=== PATIENT | male | born 1965 | race African-American/Black ===

== ENCOUNTER 2018-04-18 10:16 | Emergency (ER) | payer OTHER ==
[~2018-04-18] VITALS: Ht 175.3 cm; Wt 120.7 kg
[2018-04-18] MEDS ORDERED: GUAI118L20 PO (11:32)
[2018-04-18] MEDS ORDERED: METH4TAB2 PO (11:32)
--- NOTE | 2018-04-18 11:32 | PHYS DOC ---
Past Medical History Past Medical History: Hypertension Past Surgical History: Other Additional Past Surgical Histo: RT HIP SURGERY 12/21/14, RT SHOULDER Alcohol Use: None Drug Use: None Adult General Chief Complaint Chief Complaint: Congestion HPI HPI Patient is a 52 year old male who presents with cough 1 month that comes and goes it's been using NyQuil and Coricidin. Patient states he's been coughing up white mucous every now and then. Patient doesn't smoke and has no past medical history. Patient denies fever, nasal congestion, cold chills, nausea, vomiting, chest pain, shortness of air. Review of Systems Review of Systems Constitutional: Denies fever or chills [] Eyes: Denies change in visual acuity, redness, or eye pain [] HENT: Denies nasal congestion or sore throat [] Respiratory: cough or denies shortness of breath [] Cardiovascular: No additional information not addressed in HPI [] GI: Denies abdominal pain, nausea, vomiting, bloody stools or diarrhea [] : Denies dysuria or hematuria [] Musculoskeletal: Denies back pain or joint pain [] Integument: Denies rash or skin lesions [] Neurologic: Denies headache, focal weakness or sensory changes [] All other systems were reviewed and found to be within normal limits, except as documented in this note. Allergies Allergies Allergies Coded Allergies Type Severity Reaction Last Updated Verified No Known Drug Allergies 12/30/14 No Physical Exam Physical Exam Constitutional: Well developed, well nourished, no acute distress, non-toxic appearance. [] HENT: Normocephalic, atraumatic, bilateral external ears normal, oropharynx moist, no oral exudates, nose normal. [] Eyes: PERRLA, EOMI, conjunctiva normal, no discharge. [] Neck: Normal range of motion, no tenderness, supple, no stridor. [] Cardiovascular:Heart rate regular rhythm, no murmur [] Lungs & Thorax: Bilateral breath sounds clear to auscultation [] Abdomen: Bowel sounds normal, soft, no tenderness, no masses, no pulsatile masses. [] Skin: Warm, dry, no erythema, no rash. [] Back: No tenderness, no CVA tenderness. [] Extremities: No tenderness, no cyanosis, no clubbing, ROM intact, no edema. [] Neurologic: Alert and oriented X 3, normal motor function, normal sensory function, no focal deficits noted. [] Psychologic: Affect normal, judgement normal, mood normal. Normal physical exam.[] Current Patient Data Vital Signs Vital Signs Date Time Temp Pulse Resp B/P (MAP) Pulse Ox O2 Delivery O2 Flow Rate FiO2 04/18/18 10:32 97.6 85 18 155/82 (106) 96 Room Air 97.6 EKG EKG [] Radiology/Procedures Radiology/Procedures [] Course & Med Decision Making Course & Med Decision Making Patient is a 52 year old male who presents with cough 1 month that comes and goes it's been using NyQuil and Coricidin. Patient states he's been coughing up white mucous every now and then. Patient doesn't smoke and has no past medical history. Patient denies fever, nasal congestion, cold chills, nausea, vomiting, chest pain, shortness of air. Skin pink warm and dry. Alert and oriented. Mucous membranes are moist. Lungs are clear to auscultation in all lobes. Afebrile. Vital signs are normal limits. Heart rate regular without murmur. Patient will be given a prescription for Medrol Dosepak and Cheratussin. She needs to follow-up with his primary care provider. Dragon Disclaimer Dragon Disclaimer This electronic medical record was generated, in whole or in part, using a voice recognition dictation system. Departure Departure Impression: Primary Impression: Cough Disposition: 01 HOME, SELF-CARE Condition: STABLE Referrals: NO PCP (PCP) Patient Instructions: Cough, Adult Additional Instructions: Follow-up her primary care. Take medication as prescribed. Drink plenty of fluids. Scripts Methylprednisolone (MEDROL) 4 Mg Tab.ds.pk 1 PKG PO UD, #1 PKG Prov: CARISSA REBOLLAR [facility] 04/18/18 Guaifenesin/Codeine Phosphate (CHERATUSSIN AC SYRUP) 118 Ml Liquid 5 ML PO PRN Q6HRS for 7 Days, #120 ML Prov: CARISSA REBOLLAR [facility] [employer] 04/18/18 CARISSA REBOLLAR [facility] [employer] [facility] Apr 18, 2018 11:32
[2018-04-18 11:35] VITALS: BP 153/72
[2018-04-19] MEDS ORDERED: AZIT250T6 PO (13:15)
== END 2018-04-18 11:35 | disposition home or self-care (01) ==
LOC: ER 10:16
DX: R05 Cough (principal); I10 Essential (primary) hypertension
CPT/HCPCS: 99283

== ENCOUNTER 2018-04-19 11:21 | Emergency (ER) | payer OTHER ==
[~2018-04-19] VITALS: Ht 172.7 cm; Wt 120.7 kg
[~2018-04-19 11:21] MED LIST: GUAI118L20 PO; METH4TAB2 PO
[2018-04-19 11:47] VITALS: BP 173/99
--- NOTE | 2018-04-19 12:29 | RAD ---
Exam performed: 2 views of the chest. Indication: cough for several weeks, worse since yesterday Date of Service: 04/19/2018 12:10 PM . Comparison : One view chest from 10/09/[address] angiogram chest from 12/30/2014 Findings: PA and lateral radiographs of the chest reveal a normal cardiomediastinal contour. The lungs are clear, haziness in both lungs may be related to overlying soft tissues. No pleural fluid is seen. The visualized osseous structures are unremarkable. Impression: No acute cardiopulmonary process seen. Electronically signed by: Darlene Ahmadi MD (04/19/2018 12:26 PM) [place] [id number]
--- NOTE | 2018-04-19 12:40 | PHYS DOC ---
Past Medical History Past Medical History: Hypertension Past Surgical History: Other Additional Past Surgical Histo: RT HIP SURGERY 12/21/14, RT SHOULDER Alcohol Use: None Drug Use: None Adult General Chief Complaint Chief Complaint: COUGH HPI HPI Patient is a 52 year old male who presents with dysuria yesterday complaining of his month-long cough history with occasional white mucous coming up. Patient was given a Medrol Dosepak and Cheratussin yesterday. Patient states that he is still coughing and is not helping. states the patient began running a fever morning she gave him Tylenol before they came and so he is afebrile and the ED. Review of Systems Review of Systems Constitutional: Denies fever or chills [] Eyes: Denies change in visual acuity, redness, or eye pain [] HENT: Denies nasal congestion or sore throat [] Respiratory: cough or Denies shortness of breath [] Cardiovascular: No additional information not addressed in HPI [] GI: Denies abdominal pain, nausea, vomiting, bloody stools or diarrhea [] : Denies dysuria or hematuria [] Musculoskeletal: Denies back pain or joint pain [] Integument: Denies rash or skin lesions [] Neurologic: Denies headache, focal weakness or sensory changes [] All other systems were reviewed and found to be within normal limits, except as documented in this note. Allergies Allergies Allergies Coded Allergies Type Severity Reaction Last Updated Verified No Known Drug Allergies 12/30/14 No Physical Exam Physical Exam Constitutional: Well developed, well nourished, no acute distress, non-toxic appearance. [] HENT: Normocephalic, atraumatic, bilateral external ears normal, oropharynx moist, no oral exudates, nose normal. [] Eyes: PERRLA, EOMI, conjunctiva normal, no discharge. [] Neck: Normal range of motion, no tenderness, supple, no stridor. [] Cardiovascular:Heart rate regular rhythm, no murmur [] Lungs & Thorax: Bilateral breath sounds clear to auscultation [] Abdomen: Bowel sounds normal, soft, no tenderness, no masses, no pulsatile masses. [] Skin: Warm, dry, no erythema, no rash. [] Back: No tenderness, no CVA tenderness. [] Extremities: No tenderness, no cyanosis, no clubbing, ROM intact, no edema. [] Neurologic: Alert and oriented X 3, normal motor function, normal sensory function, no focal deficits noted. [] Psychologic: Affect normal, judgement normal, mood normal. [] Normal Physical Exam Current Patient Data Vital Signs Vital Signs Date Time Temp Pulse Resp B/P (MAP) Pulse Ox O2 Delivery O2 Flow Rate FiO2 04/19/18 11:47 98.7 105 24 173/99 (123) 95 Room Air 98.7 EKG EKG [] Radiology/Procedures Radiology/Procedures [] Impressions: [facility] [address] [place] [address] IMAGING REPORT Signed PATIENT: ORLIN ESQUIVEL ACCOUNT: [id number] : 1965 LOCATION: ER AGE: 52 SEX: M EXAM STATUS: REG ER ORD. PHYSICIAN: CARISSA REBOLLAR APRN REASON: cough for several weeks worsening since yesterday PROCEDURE: CHEST PA & LATERAL Exam performed: 2 views of the chest. Indication: cough for several weeks, worse since yesterday Date of Service: 04/19/2018 12:10 PM . Comparison : One view chest from 10/09/[address] angiogram chest from 12/30/2014 Findings: PA and lateral radiographs of the chest reveal a normal cardiomediastinal contour. The lungs are clear, haziness in both lungs may be related to overlying soft tissues. No pleural fluid is seen. The visualized osseous structures are unremarkable. Impression: No acute cardiopulmonary process seen. Electronically signed by: Darlene Bhagat MD (04/19/2018 12:26 PM) [id number] DICTATED and SIGNED BY: DARLENE BHAGAT MD DATE: 04/19/18 1226 Course & Med Decision Making Course & Med Decision Making Patient is a 52 year old male who presents with dysuria yesterday complaining of his month-long cough history with occasional white mucous coming up. Patient was given a Medrol Dosepak and Cheratussin yesterday. Patient states that he is still coughing and is not helping. states the patient began running a fever morning she gave him Tylenol before they came and so he is afebrile and the ED. lungs are clear to auscultation. Vital signs are within normal limits. Afebrile. Skin is pink warm and dry. Alert and oriented. Mucous membranes are moist. Patient has no new symptoms from yesterday except the states that he began running a fever this morning. Chest x-ray done today shows no acute findings. Patient has no extremity swelling. Heart rate regular without murmur. Patient's states that the Cheratussin did not work and she tried giving him Tessalon Perles and those did not work. PERRLA. Speaks in full clear sentences. I stated to the patient that I can do some blood work and make sure that that is all normal and then he needs to follow-up with his primary care provider continue taking the Medrol Dosepak and the Cheratussin and I will write him a prescription for azithromycin since he started running a fever. Patient is agreeable to this. Patient is stable and in no distress. 1300: There states to me that they attempted twice to get blood from the patient the patient is now refusing blood draw. Patient states that he wants to go home. Patient will be discharged home and to follow up with his primary care provider. Dragon Disclaimer Dragon Disclaimer This electronic medical record was generated, in whole or in part, using a voice recognition dictation system. Departure Departure Impression: Primary Impression: Cough Disposition: 01 HOME, SELF-CARE Condition: STABLE Referrals: NO PCP (PCP) Patient Instructions: Cough, Adult Additional Instructions: Follow up with primary care provider. Take medications as prescribed. Scripts Azithromycin (AZITHROMYCIN TABLET) 250 Mg Tablet 1 PKG PO UD, #6 TAB Prov: CARISSA REBOLLAR APRN 04/19/18 CARISSA REBOLLAR APRN Apr 19, 2018 12:40
[2018-04-19] MEDS ORDERED: AZIT250T6 PO (13:15)
== END 2018-04-19 13:24 | disposition home or self-care (01) ==
LOC: ER 11:21
DX: R05 Cough (principal); R50.9 Fever, unspecified; I10 Essential (primary) hypertension
CPT/HCPCS: 71046; 99283